=== PATIENT | male | born 1960 | race African-American/Black ===

== ENCOUNTER 2024-04-19 05:16 | Day surgery (SDC) | payer OTHER ==
[2024-04-16 10:40] VITALS: BMI 25.7
[2024-04-19 10:43] VITALS: TEMP 98.3
[2024-04-19 11:32] VITALS: BP 128/81; PULSE 72; RESP 17
== END 2024-04-19 11:30 | disposition home or self-care (01) ==
LOC: JASU-ENDO 05:16
PROVIDERS: ATTEND Internal Medicine Gastroenterology
PROC: 0DJD8ZZ Inspection of Lower Intestinal Tract, Via Natural or Artificial Opening Endoscopic (ICD-10-PCS; principal; 2024-04-19 10:00)
DX: Z12.11 Encounter for screening for malignant neoplasm of colon (principal); K64.8 Other hemorrhoids; R19.5 Other fecal abnormalities; I10 Essential (primary) hypertension